=== PATIENT | male | born 1975 ===

== ENCOUNTER 2020-09-06 09:15 | Emergency (ER) | payer SELFPAY ==
[~2020-09-06] VITALS: Ht 170.2 cm; Wt 54.5 kg
[2020-09-06] MEDS ORDERED: ORPHENADRINE CITRATE 60 MG/2 ML VIAL. IM ONE (09:30)
[2020-09-06] MEDS ORDERED: ONDANSETRON ODT 4 MG TAB.RAPDIS. PO ONE (09:30)
[2020-09-06] MEDS ORDERED: KETOROLAC 60 MG/2 ML VIAL. IM ONE (09:30)
[2020-09-06 10:30] VITALS: BP 152/92
[2020-09-06] MEDS ORDERED: CYCL10TA2 PO (10:31)
[2020-09-06] MEDS ORDERED: KETO10TA PO (10:31)
--- NOTE | 2020-09-06 10:32 | ED.ADGEN ---
Past Medical History Past Medical History: No Pertinent History Past Surgical History: Other Additional Past Surgical Histo: torsion Smoking Status: Current Every Day Smoker Alcohol Use: Occasionally General Adult EDM: Chief Complaint: NAUSEA/VOMITING/DIARRHEA HPI: HPI: Patient is a 44 year old male coming in via EMS from a hotel where he has been able to stay for while he has Covid. Just stopped a couple days ago but has not gotten his results. Patient admits to complaining of upset stomach, vomiting, diarrhea. Denies any cough or fevers. Patient has had right low back pain for the past couple days. Patient states he has a history of herniated disks and chronically has exacerbations of pain peer denies any recent trauma, falls, heavy lifting or straining. Patient dates he has been laying in bed. No uri nary complaints, no urinary or bowel dysfunction. Pain does not radiate Review of Systems: Review of Systems: All other systems within normal limits except for as noted in the HPI Current Medications: Current Medications Medications (Trade) Dose Ordered Sig/Derrick Start Time Stop Time Status Last Admin Dose Admin Ketorolac Tromethamine (Toradol Im) 60 mg 1X ONCE 09/06/20 09:30 09/06/20 09:31 DC 09/06/20 10:07 60 MG Ondansetron HCl (Zofran Odt) 4 mg 1X ONCE 09/06/20 09:30 09/06/20 09:31 DC 09/06/20 10:06 4 MG Orphenadrine Citrate (Norflex) 60 mg 1X ONCE 09/06/20 09:30 09/06/20 09:31 DC 09/06/20 10:07 60 MG Allergies: Allergies: Allergies Coded Allergies Type Severity Reaction Last Updated Verified No Known Drug Allergies 09/06/20 No Physical Exam: PE: Constitutional: Well developed, well nourished, no acute distress, non-toxic appearance. [] HENT: Normocephalic, atraumatic, bilateral external ears normal, nose normal. [] Eyes: PERRLA, conjunctiva normal, no discharge. [] Neck: No rigidity, supple, no stridor. [] Cardiovascular: Regular rate and rhythm, brisk cap refill [] Lungs & Thorax: Non labored symmetric respirations, no tachypnea or respiratory distress [] Abdomen: Soft, nondistended. Skin: Warm, dry, no erythema, no rash. [] Back: Unremarkable, no step-offs deformities, tenderness on low lateral right ba ck and lumbar region Extremities: No deformities, range of motion grossly intact, no lower extremity edema [] Neurologic: Alert and oriented X 3, no focal deficits noted. [] Psychologic: Affect normal, judgement normal, mood normal. [] Current Patient Data: Vital Signs: Vital Signs Date Time Temp Pulse Resp B/P (MAP) Pulse Ox O2 Delivery O2 Flow Rate FiO2 09/06/20 09:33 97.2 94 20 177/89 (118) 95 97.2 EKG: EKG: [] Heart Score: C/O Chest Pain: No Risk Factors: Risk Factors: DM, Current or recent (<one month) smoker, HTN, HLP, family history of CAD, obesity. Risk Scores: Score 0 - 3: 2.5% MACE over next 6 weeks - Discharge Home Score 4 - 6: 20.3% MACE over next 6 weeks - Admit for Clinical Observation Score 7 - 10: 72.7% MACE over next 6 weeks - Early Invasive Strategies Radiology/Procedures: Radiology/Procedures: [] Course & Med Decision Making: Course & Med Decision Making Pertinent Labs and Imaging studies reviewed. (See chart for details) [] Dragon Disclaimer: Dragon Disclaimer: This electronic medical record was generated, in whole or in part, using a voice recognition dictation system. Departure Departure Impression: Primary Impression: Acute exacerbation of chronic low back pain Disposition: 01 DC HOME SELF CARE/HOMELESS Condition: STABLE Patient Instructions: Back Pain, Adult Scripts Ketorolac Tromethamine (KETOROLAC TROMETHAMINE) 10 Mg Tablet 1 TAB PO TID PRN for MODERATE PAIN 4-6 for 5 Days, #15 TAB Prov: ANA SANCHEZ MD 09/06/20 Cyclobenzaprine Hcl (CYCLOBENZAPRINE HCL) 10 Mg Tablet 1 TAB PO TID PRN for MUSCLE SPASMS for 5 Days, #15 TAB Prov: ANA SANCHEZ MD 09/06/20 ANA SANCHEZ MD Sep 06, 2020 10:32
== END 2020-09-06 10:41 | disposition home or self-care (01) ==
LOC: ER 09:15
DX: G89.29 Other chronic pain (principal); M54.5 Low back pain; R11.10 Vomiting, unspecified; K30 Functional dyspepsia; R19.7 Diarrhea, unspecified; F17.200 Nicotine dependence, unspecified, uncomplicated
CPT/HCPCS: 96372; 99284; J1885; J2360